=== PATIENT | female | born 1965 | race American Indian/Alaskan Native ===

== ENCOUNTER 2017-06-07 04:52 | Outpatient (CLI) | payer SELFPAY ==
[~2017-06-07 04:52] MED LIST: IBUP-1572 PO; MULT-1085 PO
== END 2017-06-07 23:59 | disposition home or self-care (01) ==
LOC: HW WOMENS 04:52
DX: Z00.00 Encounter for general adult medical examination without abnormal findings (principal)

== ENCOUNTER 2017-08-30 02:32 | Outpatient (CLI) | payer SELFPAY ==
[2017-08-30 08:43] LABS: CHOL/HDL RATIO 3.92 (0.00-4.99)
[2017-08-30 08:47] LABS: HEMOGLOBIN A1C 6.1 % (4.5-6.2)
== END 2017-08-30 23:59 | disposition home or self-care (01) ==
LOC: HW HEART 02:32
DX: Z13.6 Encounter for screening for cardiovascular disorders (principal)
CPT/HCPCS: 36415